=== PATIENT | male | born 1965 | race Caucasian/White ===

== ENCOUNTER 2023-02-13 07:32 | Emergency (ER) | payer OTHER ==
[~2023-02-13] VITALS: Ht 180.3 cm; Wt 86.4 kg
[2023-02-13] MEDS ORDERED: METOCLOPRAMIDE INJ 10MG/2ML VIAL IV ONE (07:45)
[2023-02-13] MEDS ORDERED: NS 1,000 ML IV ONE (07:45)
[2023-02-13] MEDS ORDERED: KETOROLAC 30 MG/ML 1ML VIAL IV ONE (07:45)
[2023-02-13 08:22] VITALS: BP 180/87
[2023-02-13] MEDS ORDERED: PROMETHAZINE 25MG/ML 1ML VIAL IV ONE (08:50)
[2023-02-13] MEDS ORDERED: REGL10TA6 PO (12:59)
[2023-02-13 13:25] VITALS: BP 151/7; TEMP 98.2; O2SAT 96
== END 2023-02-13 13:26 | disposition home or self-care (01) ==
LOC: EDBD 07:32 → M ED 07:32
DX: F11.23 Opioid dependence with withdrawal (principal); I10 Essential (primary) hypertension; E78.5 Hyperlipidemia, unspecified; E03.9 Hypothyroidism, unspecified; Z79.810 Long term (current) use of selective estrogen receptor modulators (SERMs)
CPT/HCPCS: 96361; 96374; 96375; 99284; J1885; J2550; J2765